=== PATIENT | male | born 1960 | race Caucasian/White ===

== ENCOUNTER 2023-03-24 15:20 | Emergency (ER) | payer BC, OTHER ==
[~2023-03-24] VITALS: Ht 177.8 cm; Wt 85.2 kg
[2023-03-24 19:00] VITALS: BP 138/87
[2023-03-24] MEDS ORDERED: KETOROLAC TROMETH 60MG/2ML VIAL IM ONE (19:00)
[2023-03-24] MEDS ORDERED: IBUP-1456 PO (19:05)
[2023-03-24] MEDS ORDERED: CYCL-837 PO (19:05)
== END 2023-03-24 19:55 | disposition home or self-care (01) ==
LOC: ER 15:20
DX: S39.012A Strain of muscle, fascia and tendon of lower back, initial encounter (principal); M54.41 Lumbago with sciatica, right side; E78.5 Hyperlipidemia, unspecified; I10 Essential (primary) hypertension; Z90.89 Acquired absence of other organs; X50.9XXA Other and unspecified overexertion or strenuous movements or postures, initial encounter; Y93.89 Activity, other specified; Y92.89 Other specified places as the place of occurrence of the external cause; Y99.8 Other external cause status
CPT/HCPCS: 93971; 96372; 99285; J1885